=== PATIENT | male | born 1990 | race Two or more races ===

== ENCOUNTER 2022-02-05 14:40 | Outpatient (REF) | payer OTHER, SELFPAY ==
[2022-02-05 18:55] LABS: Influenza A PCR POSITIVE (Negative); Influenza B PCR NEGATIVE (Negative); Resp Syncy Virus RNA Qual PCR NEGATIVE (Negative); SARS COV2 PCR INHOUSE NEGATIVE (Negative)
== END 2022-02-05 14:41 | disposition home or self-care (01) ==
LOC: HO.LAB 14:40
PROVIDERS: Visit Provider Hospitalist
DX: R09.89 Other specified symptoms and signs involving the circulatory and respiratory systems (principal); Z20.822 Contact with and (suspected) exposure to COVID-19
CPT/HCPCS: 0241U

== ENCOUNTER 2022-02-12 09:08 | Outpatient (REF) | payer OTHER, SELFPAY ==
[2022-02-12 11:04] LABS: Hematocrit 43.3 % (42.0-52.0); Hemoglobin 13.3 g/dl (14.0-18.0); Mean Corpuscular HGB Conc 30.7 g/dl (31.0-36.0); Mean Corpuscular Hemoglobin 25.6 pg (27.0-33.0); Mean Corpuscular Volume 83.4 fL (80.0-98.0); Mean Platelet Volume 10.2 fL (9.4-12.4); Platelet Count 305 X10*3/uL (160-400); Red Blood Count 5.19 X10*6/uL (4.60-5.80); Red Cell Distribution Width 12.7 % (11.0-16.0); White Blood Count 5.9 X10*3/uL (4.8-10.8)
[2022-02-12 11:13] LABS: Alanine Aminotransferase 21 U/L (0-40); Albumin Level 3.8 g/dL (3.5-5.0); Anion Gap 12 (12-20); Aspartate Amino Transferase 13 U/L (5-37); Blood Urea Nitrogen 9 mg/dL (9-16); Carbon Dioxide 28 mmol/L (22-29); Chloride 105 mmol/L (96-108); Cholesterol 159 mg/dL; Estimated Glomerular Filt Rate > 60; Glucose Fasting 95 mg/dL (60-99); Potassium 4.1 mmol/L (3.3-5.1); Sodium 141 mmol/L (135-145); Total Protein 6.7 g/dL (6.5-8.0); Triglycerides 110 mg/dL
[2022-02-12 11:14] LABS: Alkaline Phosphatase 41 U/L (39-117); HDL Cholesterol 26 mg/dL; LDL Cholesterol Calculated 111 mg/dl
== END 2022-02-12 09:09 | disposition home or self-care (01) ==
LOC: HO.WFDLDS 09:08
PROVIDERS: Visit Provider Hospitalist
DX: Z00.00 Encounter for general adult medical examination without abnormal findings (principal)
CPT/HCPCS: 36415; 80053; 80061; 84443; 85027

== ENCOUNTER 2022-03-05 12:50 | Outpatient (REF) | payer OTHER, SELFPAY ==
[2022-03-11 18:41] LABS: Trichenella Antibody (IgG) NEGATIVE
== END 2022-03-05 12:51 | disposition home or self-care (01) ==
LOC: HO.WFDLDS 12:50
PROVIDERS: Visit Provider Hospitalist
DX: B75 Trichinellosis (principal)
CPT/HCPCS: 36415; 86784

== ENCOUNTER 2024-10-02 11:13 | Outpatient (AMB) | payer OTHER, SELFPAY ==
--- NOTE | 2024-10-02 11:14 | MHC.PC.OV ---
Vital Signs 10/02/24 11:18 Height 5 ft 10 in Weight 334 lb BMI 47.9 BP 118/68 Blood Pressure Location Rt brachial Position Sitting Respiration 13 Pulse 86 Pulse Source Pulse Oximeter Pulse Oximetry (%) 97 Oxygen Delivery Method Room Air Intake Visit Reasons: FL[place] FROM [place]ELYN/KNEE PAIN Intake Note: Florence and to establish care, patient also complaining of left knee pain x 3 months Hotel Room Attendant Required: No Allergies No Known Allergies Allergy (Verified 10/02/24 11:14) Tobacco use date assessed: 10/02/24 Dental Screening Dental Screen Date: 10/02/24 Did you have a dental visit in the last 12 months?: Yes Did you have a dental problem in the last 6 months where you did not have access to dental care?: No Was dental information given to patient?: Patient has dentist HPI HPI Comments History of Present Illness Details This is a 34-year-old male with a past medical history of class 3 obesity presenting for left knee pain and to establish care. He was last seen by Evelyn Nassar in this office in June of 2022. Patient endorses left knee pain for 3 months. No trauma or history of injury. Pain is worse when he is sitting down for 5-10 minutes and stands and when he is going up and downstairs or if he is walking for a long period of time. Pain rated as moderate aching. He localizes it to the front and inner parts of the knee. 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 His job is fairly physical, and he is on his feet for 10-11 hours per day. He appreciates no discoloration, swelling or redness of his knee. Initially his knee felt weak which resolved. He did not fall. He has tried icing and elevating without relief. Rkuc-kfh-zmfrkor arthritis cream was minimally helpful. Took ibuprofen a couple of times. He is unsure if it helped. No prior episodes or history of knee surgery. He notes that his weight has increased. He has not had recent blood work. He admits that his diet is not always very healthy particularly when he is busy. He sometimes eats the food provided at work but it is fried food that is not very healthy. He is not exercising regularly. ROS: Constitutional: No fevers or chills Respiratory: No shortness of breath Cardiovascular: No chest pain Neurologic: No numbness or tingling Physical exam: Constitutional: Alert, in no distress. Respiratory: Clear to auscultation. Cardiovascular: S1 S2 regular. No murmurs. Left knee: Full range of motion, +knee pain with flexion. Nontender to palpation. No laxity. Negative Jennifer and Kayla test. No crepitus. Normal gait. Extremities: Warm and well perfused. No clubbing, cyanosis or edema. Psychiatric: Normal mood and affect [facility] Medical History (Updated 10/02/24 @ 13:32 by GWENDOLYN Martinez) Class 3 obesity Left knee pain Screening for cardiovascular condition Obesity Family History (Updated 10/02/24 @ 11:21 by Tate Rhodes MA) Father Hypertension Mother Rheumatic arteritis Mental health disorder Social History Household Members: Family Housing: House Do you presently have visiting nurse or other home services: No 75 years or older and lives alone: No Patient Tobacco Use Status: Never used Tobacco e-Cigarette/Vaping Use: Never Used Second Hand Smoke Exposure: No Current occupational status: employed 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 07915 - PHQ-9 Billing: Patient declined-do not bill Source: Developed by Drs. Tim Garcia, Harper Alvarez, Ray Hernandez and colleagues, with an educational mansi from [employer]. Thrive Questionnaire Date Thrive assessed: 10/02/24 I am a: Patient What is your living situation today?: I have a steady place to live Within the past 12 months, did the food you bought not last and you didn't have the money to get more?: Never true Within the past 12 months, did you worry whether your food would run out before you got money to buy more?: Never true Do you have trouble paying for medicines?: No Do you have trouble getting transportation to medical appointments?: No Do you have trouble paying your heating and electricity bill?: No Do you have trouble taking care of your child, family member or friend?: No Do you have trouble with day-to-day activities such as bathing, preparing meals, shopping, managing finances, etc.?: No Are you currently unemployed and looking for a job?: No Are you interested in more education?: Yes Please select the resources that you would like help with: None Currently or been in a relationship where the following occur: No concerns reported THRIVE Score: 0 AUDIT C Alcohol Use Questionnaire (AUDIT-C) 1. How often do you have a drink containing alcohol?: Monthly or less 2. How many drinks containing alcohol do you have on a typical day when you are drinking?: 3 or 4 3. How often do you have six or more drinks on one occasion?: Less than monthly Total Score: 3 FABIAN-7 AMB Questionnaire FABIAN-7 Date FABIAN - 7 assessed: 10/02/24 Feeling nervous, anxious, or on edge: 0 = Not at all Not being able to stop or control worryin = Not at all Worrying too much about different things: 0 = Not at all Trouble relaxin = Not at all Being so restless that it is hard to sit still: 0 = Not at all Becoming easily annoyed or irritable: 0 = Not at all Feeling afraid as if something awful might happen: 0 = Not at all Total FABIAN-7 score (0-4 normal; 5-9 mild; 10-14 moderate; 15-21 severe): 0 Source: Developed by Drs. Tim Garica, Harper Alvarez, Ray Hernandez and colleagues, with an educational mansi from [employer]. FABIAN-7 Assessment Billing FABIAN-7 Assessment Tool: FABIAN-7 Assessment 46330 Physical exam (Primary Care) Vital Signs: Last Vital Signs Pulse 86 10/02/24 11:18 Resp 13 10/02/24 11:18 BP 118/68 10/02/24 11:18 Pulse Ox 97 10/02/24 11:18 Oxygen Delivery Method Room Air 10/02/24 11:18 BMI result Body Mass Index 47.9 Tobacco/Smoking Status: Tobacco use Status Tobacco use date assessed 10/02/24 10/02/24 11:20 Patient Tobacco Use Status Never used Tobacco 10/02/24 11:20 e-Cigarette/Vaping Use Never Used 10/02/24 11:20 Thrive Assessment: Date of Thrive Assessment Date Thrive assessed 10/02/24 10/02/24 11:20 Currently or been in a relationship where the following occur: No concerns reported Coding Level of Care Code Est Pt Level 4 (15193) Complex EM visit Add On G2211 Diagnoses Left knee pain M25.562 Class 3 obesity E66.813 Additional Codes FABIAN-7 Assessment Billing - FABIAN-7 Assessment Tool: FABIAN-7 Assessment 04611 ([id number]) Assessment & Plan Assessment & Plan (1) Left knee pain: Code(s): M25.562 - Pain in left knee Category: Medical Plan: Trial of sulindac 200 mg twice daily with food times 10 days. Do not take with other NSAIDs. Side effects reviewed. Continue to alternate with ice and he as needed for pain. X-ray ordered. Refer to physical therapy. Re-evaluate in 8 weeks. (2) Class 3 obesity: Code(s): E66.813 - Obesity, class 3 Category: Medical Plan: We discussed initial management including decreasing portion sizes, low-carbohydrate diet, avoidance of sugary foods and alcohol and increasing exercise though this may be limited due to knee pain. He will return for fasting labs. He will schedule a physical exam to review labs and at that time we can discuss if he is a candidate for weight loss medication or if he wants referral to the weight loss management program or to try The Right BMI kris. Plan Follow up in 8 weeks for CPE/knee pain. Orders: Orders Lipid Panel Today E78.5 - Hyperlipidemia, unspecified, M25.562 - Pain in left knee, Z13.6 - Encounter for screening for cardiovascular disorders Complete Blood Count no Diff Today M25.562 - Pain in left knee, Z13.6 - Encounter for screening for cardiovascular disorders Comprehensive Met. Panel Today M25.562 - Pain in left knee, Z13.6 - Encounter for screening for cardiovascular disorders TSH reflex Free T4 Today M25.562 - Pain in left knee, Z13.6 - Encounter for screening for cardiovascular disorders Lyme IgG/IgM w/reflex to WB Today M25.562 - Pain in left knee, Z13.6 - Encounter for screening for cardiovascular disorders XR knee LT 2V Today M25.562 - Pain in left knee PT Evaluation and Treatment Today M25.562 - Pain in left knee Medications: New sulindac 200 mg PO BID 20 tabs 0RF
[2024-10-02 11:18] VITALS: BP 118/68; PULSE 86; RESP 13; O2SAT 97; BMI 47.9
== END 2024-10-02 11:39 | disposition home or self-care (01) ==
PROVIDERS: PCP Physician Assistant Medical; Visit Provider Physician Assistant Medical
DX: M25.562 Pain in left knee (principal); E66.813 Obesity, class 3; Z68.42 Body mass index [BMI] 45.0-49.9, adult

== ENCOUNTER 2024-10-03 11:56 | Outpatient (REF) | payer OTHER, SELFPAY ==
[2024-10-03 12:39] LABS: Hematocrit 45.1 % (42.0-52.0); Hemoglobin 14.2 g/dl (14.0-18.0); Mean Corpuscular HGB Conc 31.5 g/dl (31.0-36.0); Mean Corpuscular Hemoglobin 25.9 pg (27.0-33.0); Mean Corpuscular Volume 82.3 fL (80.0-98.0); Mean Platelet Volume 10.3 fL (9.4-12.4); Platelet Count 268 X10*3/uL (160-400); Red Blood Count 5.48 X10*6/uL (4.60-5.80); Red Cell Distribution Width 13.4 % (11.0-16.0); White Blood Count 6.7 X10*3/uL (4.8-10.8)
[2024-10-03 13:07] LABS: Albumin Level 4.1 g/dL (3.5-5.0); Anion Gap 11 (12-20); Aspartate Amino Transferase 22 U/L (5-37); Bilirubin Total 1.8 mg/dL (0.0-1.0); Blood Urea Nitrogen 13 mg/dL (9-16); Carbon Dioxide 28 mmol/L (22-29); Chloride 105 mmol/L (96-108); Cholesterol 156 mg/dL (<200); Estimated Glomerular Filt Rate > 60; Glucose Random 92 mg/dL (60-115); HDL Cholesterol 32 mg/dL (>40); LDL Cholesterol Calculated 97 mg/dL (<100); Potassium 4.6 mmol/L (3.3-5.1); Sodium 139 mmol/L (135-145); Total Protein 7.2 g/dL (6.5-8.0); Triglycerides 137 mg/dL (<150)
[2024-10-03 13:32] LABS: Alanine Aminotransferase 20 U/L (0-40); Alkaline Phosphatase 53 U/L (39-117); TSH reflex Free T4 1.86 uIU/mL (0.32-4.0)
[2024-10-04 19:48] LABS: Lyme Abs Screen <0.90 index
== END 2024-10-03 11:57 | disposition home or self-care (01) ==
LOC: HO.LAB 11:56
PROVIDERS: PCP Physician Assistant Medical; Visit Provider Physician Assistant Medical
DX: M25.562 Pain in left knee (principal); Z13.6 Encounter for screening for cardiovascular disorders; E78.5 Hyperlipidemia, unspecified
CPT/HCPCS: 36415; 73560; 80053; 80061; 84443; 85027; 86617; 86618

== ENCOUNTER 2024-12-11 10:25 | Outpatient (AMB) | payer OTHER, SELFPAY ==
[2024-12-11 10:38] VITALS: BP 140/82; PULSE 83; O2SAT 98; BMI 46.2
--- NOTE | 2024-12-11 10:38 | MHC.PC.OV ---
Vital Signs 12/11/24 10:38 Height 5 ft 10 in Weight 322 lb 4 oz BMI 46.2 BP 140/82 H Blood Pressure Location Lt brachial Position Sitting Pulse 83 Pulse Source Pulse Oximeter Pulse Oximetry (%) 98 Oxygen Delivery Method Room Air Intake Visit Reasons: annual physical/recheck knee Allergies No Known Allergies Allergy (Verified 12/11/24 10:41) Tobacco use date assessed: 12/11/24 Dental Screening Dental Screen Date: 12/11/24 Did you have a dental visit in the last 12 months?: Yes Did you have a dental problem in the last 6 months where you did not have access to dental care?: No Was dental information given to patient?: Patient has dentist HPI HPI Comments History of Present Illness Details This is a 34-year-old male with a past medical history of class 3 obesity and left knee pain presenting for a physical exam. X-ray of the left knee was normal. He tried a 10 day course of sulindac. His knee is a little better, but it is still bothering him. He did not do physical therapy. Patient says he needs the referral placed again. I did this for the patient and I instructed him to call if he does not hear about this in 2 weeks. Patient has lost weight! He changed his diet and is exercising. We reviewed his recent labs. He is going to have bilirubin repeated. Patient is agreeable to referral to weight loss management. This is placed. He endorses snoring and has been told that at night sometimes he has pauses in his breathing if he is sleeping on his back, and he has occasionally woken up gasping for air. Endorses non restorative sleep. Drinks alcohol occasionally. As above, he is trying to lose weight. ROS: Constitutional: No unexplained weight loss, fever, chills, fatigue or night sweats. Eyes: No vision changes, blurry vision, double vision, eye pain, eye redness, eye discharge. ENT: No hearing loss, sneezing, congestion, runny nose or sore throat. Respiratory: No shortness of breath, cough or sputum production. Cardiovascular: No chest pain, chest pressure or chest discomfort. No palpitations or pedal edema. Gastrointestinal: No anorexia, nausea, vomiting or diarrhea. No abdominal pain or blood in stool. Genitourinary: No dysuria, hematuria, urinary frequency. Neurologic: No headache, dizziness, syncope, unilateral weakness, ataxia, numbness or tingling in the extremities. Musculoskeletal: See HPI Hematologic/Lymphatics: No bleeding or bruising. No painful lymph nodes. Skin: No rash or itching. Endocrine: No cold or heat intolerance. No polyuria or polydipsia. Psychiatric: No depression or anxiety. No SI/HI. Physical exam: Constitutional: Alert, in no distress. Head: Normocephalic. Eyes: Pupils are equal, round and reactive to light. Extraocular muscles intact. Ear, Nose and Throat: Canals clear. TMs normal. Normal nasal mucosa. No nasal discharge. No oral lesions. Neck: Supple, Full range of motion. No lymphadenopathy. No palpable thyroid masses. Respiratory: Clear to auscultation. Cardiovascular: S1 S2 regular. No murmurs. Gastrointestinal: Abdomen soft, non-tender, non-distended. Normal bowel sounds. No palpable masses. Genitourinary: Patient declined. Neurologic: No focal neurological deficits. Symmetric patellar reflexes. Moves all extremities spontaneously. Sensation intact bilaterally. Skin: No rashes. Musculoskeletal: +left knee crepitus. Extremities: Warm and well perfused. No clubbing, cyanosis or edema. 3+ peripheral pulses bilaterally. Psychiatric: Normal mood and affect [facility] Medical History (Updated 12/11/24 @ 13:35 by GWENDOLYN Martinez) Routine physical examination Sleep apnea Class 3 obesity Left knee pain Screening for cardiovascular condition Obesity Family History Father Hypertension Mother Rheumatic arteritis Mental health disorder Social History Household Members: Family Housing: House Do you presently have visiting nurse or other home services: No Patient Tobacco Use Status: Never used Tobacco e-Cigarette/Vaping Use: Never Used Second Hand Smoke Exposure: No Current occupational status: employed 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 1. Little interest or pleasure in doing things: not at all 2. Feeling down, depressed, or hopeless: not at all 3. Trouble falling or staying asleep, or sleeping too much: several days 4. Feeling tired or having little energy: not at all 5. Poor appetite or overeating: not at all 6. Feeling bad about yourself - or that you are a failure or have let yourself or your family down: not at all 7. Trouble concentrating on things, such as reading the newspaper or watching television: not at all 8. Moving or speaking so slowly that other people could have noticed. Or the opposite - being so fidgety or restless that you have been moving around a lot more than usual: not at all 9. Thoughts that you would be better off or of hurting yourself in some way: not at all Total score: 1 Depression Screening Interpretation: Negative Depression Screening Done: Yes 13383 - PHQ-9 Billing: Yes Source: Developed by Drs. Tim Garcia, Harper Alvarez, Ray Hernandez and colleagues, with an educational mansi from [employer]. Thrive Questionnaire Date Thrive assessed: 12/08/24 I am a: Patient What is your living situation today?: I have a steady place to live Within the past 12 months, did the food you bought not last and you didn't have the money to get more?: Never true Within the past 12 months, did you worry whether your food would run out before you got money to buy more?: Never true Do you have trouble paying for medicines?: No Do you have trouble getting transportation to medical appointments?: No Do you have trouble paying your heating and electricity bill?: No Do you have trouble taking care of your child, family member or friend?: No Do you have trouble with day-to-day activities such as bathing, preparing meals, shopping, managing finances, etc.?: No Are you currently unemployed and looking for a job?: No Are you interested in more education?: No Please select the resources that you would like help with: None Currently or been in a relationship where the following occur: No concerns reported THRIVE Score: 0 AUDIT C Alcohol Use Questionnaire (AUDIT-C) 1. How often do you have a drink containing alcohol?: Monthly or less 2. How many drinks containing alcohol do you have on a typical day when you are drinking?: 1 or 2 3. How often do you have six or more drinks on one occasion?: Less than monthly Total Score: 2 FABIAN-7 AMB Questionnaire FABIAN-7 Date FABIAN - 7 assessed: 12/11/24 Feeling nervous, anxious, or on edge: 0 = Not at all Not being able to stop or control worryin = Not at all Worrying too much about different things: 1 = Several days Trouble relaxin = Not at all Being so restless that it is hard to sit still: 0 = Not at all Becoming easily annoyed or irritable: 0 = Not at all Feeling afraid as if something awful might happen: 0 = Not at all Total FABIAN-7 score (0-4 normal; 5-9 mild; 10-14 moderate; 15-21 severe): 1 Source: Developed by Drs. Tim Garcia, Harper Alvarez, Ray Hernandez and colleagues, with an educational mansi from [employer]. FABIAN-7 Assessment Billing FABIAN-7 Assessment Tool: FABIAN-7 Assessment 93279 Physical exam (Primary Care) Vital Signs: Last Vital Signs Pulse 83 12/11/24 10:38 BP 140/82 H 12/11/24 10:38 Pulse Ox 98 12/11/24 10:38 Oxygen Delivery Method Room Air 12/11/24 10:38 BMI result Body Mass Index 46.2 Tobacco/Smoking Status: Tobacco use Status Tobacco use date assessed 12/11/24 12/11/24 10:43 Patient Tobacco Use Status Never used Tobacco 12/11/24 10:43 e-Cigarette/Vaping Use Never Used 12/11/24 10:43 PHQ-9: PHQ-9 Score PHQ-9: Total score 1 12/11/24 11:20 Depression Screening Interpretation: Negative Thrive Assessment: Date of Thrive Assessment Date Thrive assessed 12/08/24 12/11/24 10:43 Currently or been in a relationship where the following occur: No concerns reported Immunizations Boostrix Tdap 2.5 Lf unit-8 mcg-5 Lf/0.5 mL intramuscular syringe Performing Provider: GWENDOLYN Martinez Performing Location: [facility] [place] [facility] Administered by: Dottie Galaviz CMA on 12/11/24 11:20 Dose Route Admin Location Dispensed Lot Number Expiration Date [facility] [employer] 0.5 mL IM Left Tricep 0.5 mL [id number] 02/03/27 03217-983-92 [employer] VIS Given Date VIS Provided VIS Publication Date 12/11/24 Single Vaccine 21 Eligibility Eligibility Date Funding Source Not [facility] Eligible 12/11/24 Private Coding Level of Care Code Est Pt Prev Care 18-39y(53307) Diagnoses Left knee pain M25.562 Class 3 obesity E66.813 Sleep apnea G47.30 Routine physical examination Z00.00 Additional Codes FABIAN-7 Assessment Billing - FABIAN-7 Assessment Tool: FABIAN-7 Assessment 05491 ([id number]) PHQ-9 - 26042 - PHQ-9 Billing: Yes ([id number]) Assessment & Plan Assessment & Plan (1) Left knee pain: Code(s): M25.562 - Pain in left knee Category: Medical Plan: Refer to physical therapy. Re-evaluate in 8 weeks. (2) Class 3 obesity: Code(s): E66.813 - Obesity, class 3 Category: Medical Plan: We discussed initial management including decreasing portion sizes, low-carbohydrate diet, avoidance of sugary foods and alcohol and increasing exercise though this may be limited due to knee pain. Referred to weight loss management.. (3) Sleep apnea: Code(s): G47.30 - Sleep apnea, unspecified Category: Medical Plan: Continue weight loss. Avoid alcohol. Avoid sleeping supine. Referred for urgent sleep study. (4) Routine physical examination: Code(s): Z00.00 - Encounter for general adult medical examination without abnormal findings Category: Medical Plan: Patient is seen today for a routine physical. As part of this visit we reviewed the following issues, which are considered and essential part of preventative health in this age group: - Testicular cancer screening, which includes self exam teaching - Blood pressure screening annually - Cholesterol screening - Nutritional and exercise counseling - Counseling of injury prevention including fire prevention, smoke alarms and seat belt usage - Screening for depression - Prevention of and/or testing for infectious diseases - Education about skin cancer - Recommendations about immunizations - Recommendation of an eye exam - Screening for substance abuse Plan Follow up in 8 weeks to re-evaluate knee pain. Orders: Orders PT Evaluation and Treatment Today M25.562 - Pain in left knee RT home sleep study Today G47.30 - Sleep apnea, unspecified TDaP Immunization Today Z23 - Encounter for immunization Referrals Medical Weight Management Referral E66.813 - Obesity, class 3
== END 2024-12-11 11:21 | disposition home or self-care (01) ==
PROVIDERS: PCP Physician Assistant Medical; Visit Provider Physician Assistant Medical
DX: Z00.00 Encounter for general adult medical examination without abnormal findings (principal); E66.813 Obesity, class 3; Z68.42 Body mass index [BMI] 45.0-49.9, adult; M25.562 Pain in left knee; G47.30 Sleep apnea, unspecified; Z23 Encounter for immunization

== ENCOUNTER → 2024-12-11 10:25 | Outpatient (BNVA) | payer OTHER, SELFPAY | PROVIDERS: PCP Physician Assistant Medical; Visit Provider Physician Assistant Medical | DX: Z00.00 Encounter for general adult medical examination without abnormal findings (principal); Z23 Encounter for immunization; M25.562 Pain in left knee; E66.813 Obesity, class 3; Z68.42 Body mass index [BMI] 45.0-49.9, adult; G47.30 Sleep apnea, unspecified | CPT/HCPCS: 90471; 90715; 96127 ==

== ENCOUNTER 2024-12-11 11:31 | Outpatient (REF) | payer OTHER, SELFPAY ==
[2024-12-11 15:01] LABS: Bilirubin Direct 0.2 mg/dL (0.0-0.5); Bilirubin Total 1.5 mg/dL (0.0-1.0)
== END 2024-12-11 11:32 | disposition home or self-care (01) ==
LOC: HO.WFDLDS 11:31
PROVIDERS: Visit Provider Physician Assistant Medical
DX: R17 Unspecified jaundice (principal)
CPT/HCPCS: 36415; 82247; 82248

== ENCOUNTER 2025-01-02 08:01 | Outpatient (AMB) | payer OTHER, SELFPAY ==
--- NOTE | 2025-01-02 08:55 | A.OFFVIS_ITS ---
Intake Visit Reasons: [facility] [facility] Allergies No Known Allergies Allergy (Verified 01/02/25 08:56) Medication List - Last Reconciled 01/02/25 by Mich Liriano MD No Known Home Meds HPI HPI [employer] [facility] [facility] [facility]: Details: Start time: 8.50am, End time: 9.20am ?I spent 25 minutes speaking with the patient on the phone plus an additional 5 minutes reviewing and updating records for a total of 30 minutes HPI Comments Details: Previous weight loss efforts: diet and exercise Wakes up: 4.30am, Sleeps: 10pm Breakfast: 5am (premade Premier) Lunch: 12pm (meat with vegetables) Dinner: 6pm (meat with vegetables) Snacks: 8am (jello), 8pm (nuts) Exercise: has Elliptical at home Beverages: Coffee (2-3 cup/d with Splenda and milk), tea: none, soda: none, juice: 1-2/wk (no sugar), ETOH: 1-2 beers/wk PFSH Medical History (Updated 01/02/25 @ 08:58 by Mich Liriano MD) Morbid obesity Elevated bilirubin Routine physical examination Sleep apnea Class 3 obesity Left knee pain Screening for cardiovascular condition Obesity Surgical History (Updated 12/26/24 @ 12:07 by Ml Conti CMA) Hx of foot surgery Family History Father Hypertension Mother Rheumatic arteritis Mental health disorder Social History (Updated 12/26/24 @ 12:08 by Ml Conti CMA) Household Members: Family Housing: House Do you presently have visiting nurse or other home services: No 75 years or older and lives alone: No Alcohol intake: current Alcohol intake frequency: holidays/special occasions only Patient Tobacco Use Status: Never used Tobacco e-Cigarette/Vaping Use: Never Used Second Hand Smoke Exposure: No Current occupational status: employed 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 Cognitive needs: No Hearing needs: No Vision needs: Yes (wear glasses) Telehealth Telehealth Telehealth Platform: Telephone Location of provider rendering services: practice address Location of patient: address on file Patient Identification confirmed using: Name, : Yes Telehealth method: voice only Patient verbally consented to treatment: Yes Patient verbally consented to billing insurance company: Yes Patient informed of any privacy concerns related to visit: Yes Minutes spent on Phone/Video with Pt.: 30 Assessment & Plan Assessment & Plan (1) Morbid obesity: Code(s): E66.01 - Morbid (severe) obesity due to excess calories Category: Medical Plan: 1. We discussed in detail the available therapeutic options: 1) our lifestyle intervention program that has an average weight loss of 10% in 3 months.? 2) Weight loss medications. 3) We also discussed about the lap sleeve gastrectomy. I emphasized the importance of close follow-up, adherence to instructions and good communication. The surgery does not replace the need to change your lifestlyle which is the cause of the obesity problem. The surgery provides the motivation to try again to change your lifestyle, it reduces the appetite and make the transition to a better lifestyle easier and doubles the amount of weight you would lose compared to doing the lifestyle change without the surgery. You will need to be on a liquid diet with protein shakes for 2 weeks before surgery to maximize weight loss and boost your nutritional status to recover better from surgery and also for the first two weeks after surgery to let the stomach heal before we introduce other foods. After the first 2 weeks we will introduce protein bars and soft foods like scrambled eggs, cottage cheese and yogurt and after the 6th week will introduce meat, fish and cooked vegetables in small amounts. Over time you should be able to eat everything in small amounts. Side effects like nausea, vomiting, heartburn or abdominal pain are not common in the practice unless you are not following in the practice. This operation requires lifetime commitment to following in our practice and communication with me. You will much less weight and experience side effects if you don?t communicate or not following in the practice. Complications are rare and in our practice is about 1/10 of the national average. The patient prefers to try the anti-obesity medications. ?2.? Please use your body composition scale we discussed and send me weight measurements as soon as possible and then once a week. 3. The best choice would be to use your elliptical machine. Goal is to exercise for 150 minutes per week. 4. Goal is to lose at least 1.5-2lbs per week 5. Goal to lose at least 10% of your weight, which is about 32lbs. Weight goal: 280lbs 7. Once I will receive the first weight measurement, I will order a medication to help you with the weight loss which is called Zepbound. My office will try to authorize it. Please let me know when you receive it so I can give you a meal and exercise plan. Common side effects include nausea, vomiting, constipation, diarrhea, abdominal pain. Please let me know if you develop any of these symptoms. 8. Please track the calories you consume daily and aim not to exceed the 1800 calories per day. Avoid high calorie drinks, fried, or high in fat foods as well as large amount of carbohydrates (sweets, potatoes, rice, or pasta).
== END 2025-01-02 09:21 | disposition home or self-care (01) ==
LOC: HO.HBS 08:01
PROVIDERS: PCP Physician Assistant Medical; Visit Provider Surgery
DX: E66.813 Obesity, class 3 (principal); Z68.42 Body mass index [BMI] 45.0-49.9, adult
CPT/HCPCS: 99203

== ENCOUNTER → 2025-01-02 08:01 | Outpatient (BNVA) | payer OTHER, SELFPAY | PROVIDERS: PCP Physician Assistant Medical; Visit Provider Surgery ==

== ENCOUNTER 2025-01-29 10:13 | Outpatient (REF) | payer OTHER, SELFPAY ==
--- NOTE | ~2025-01-29 | US_ITS ---
CLINICAL HISTORY: R17 - Unspecified jaundice US abdomen limited Comparison: None Findings: Limited evaluation of the pancreas secondary to overlying bowel gas. The visualized aorta and IVC are unremarkable. Liver length estimated at 18 cm. No focal liver lesion. Unremarkable echogenicity. Possible mild intrahepatic duct dilatation. There is no intrahepatic bile duct dilatation. The common duct is 5 mm in diameter. The gallbladder is normal. There is no sonographic Mascorro sign. The main portal vein is antegrade. The right kidney is [12 cm in length. Limited visualization of the lower pole. No ascites. IMPRESSION: 1. There may be a mild degree of intrahepatic ductal dilatation. 2. Borderline dilatation of the common bile duct. This document has been electronically signed by: Malika Menard MD on 01/29/2025 16:49:05
== END 2025-01-29 10:14 | disposition home or self-care (01) ==
LOC: HO.US 10:13
PROVIDERS: PCP Physician Assistant Medical; Visit Provider Physician Assistant Medical
DX: R17 Unspecified jaundice (principal)
CPT/HCPCS: 76705

== ENCOUNTER → 2025-01-29 10:15 | Outpatient (BNV) | payer OTHER, SELFPAY | PROVIDERS: PCP Physician Assistant Medical; Visit Provider Radiology Diagnostic Radiology | DX: R17 Unspecified jaundice (principal); K83.8 Other specified diseases of biliary tract | CPT/HCPCS: 76705 ==

== ENCOUNTER 2025-02-04 13:35 | Outpatient (REF) | payer OTHER, SELFPAY ==
[2025-02-04] MEDS: gadobutroL 10 ML VIAL IVPUSH (14:25)
== END 2025-02-04 13:36 | disposition home or self-care (01) ==
LOC: HO.MRI 13:35
PROVIDERS: Visit Provider Physician Assistant Medical
DX: R17 Unspecified jaundice (principal); R93.5 Abnormal findings on diagnostic imaging of other abdominal regions, including retroperitoneum; K83.8 Other specified diseases of biliary tract
CPT/HCPCS: 74183; A9585

== ENCOUNTER → 2025-02-04 13:44 | Outpatient (BNV) | payer OTHER, SELFPAY | PROVIDERS: Visit Provider Radiology Diagnostic Radiology | DX: R17 Unspecified jaundice (principal) | CPT/HCPCS: 74183 ==

== ENCOUNTER 2025-02-12 08:56 | Outpatient (REF) | payer OTHER, SELFPAY ==
[2025-02-12 11:08] LABS: MANUAL DIFF FLAG NO
[2025-02-12 11:29] LABS: Basophils Percent Auto 0.4 % (0-2); Eosinophils Absolute Auto 0.1 X10*3/uL (0.0-0.4); Eosinophils Percent Auto 1.1 % (0-4); Hemoglobin 13.7 g/dl (14.0-18.0); Imm Gran Abs Auto 0.02 X10*3/uL (0.00-0.03); Imm Gran Pct Auto 0.3 % (0.0-0.4); Immature Retic Fraction 9.1 % (2.3-13.4); Mean Corpuscular HGB Conc 31.9 g/dl (31.0-36.0); Mean Corpuscular Hemoglobin 26.4 pg (27.0-33.0); Mean Corpuscular Volume 82.9 fL (80.0-98.0); Mean Platelet Volume 11.6 fL (9.4-12.4); Monocytes Absolute Auto 0.4 X10*3/uL (0.1-1.2); Monocytes Percent Auto 5.3 % (2-11); Neutrophils Absolute Auto 5.9 x10*3/uL (2.0-8.3); Neutrophils Percent Auto 78.9 % (45-73); Platelet Count 241 X10*3/uL (160-400); Red Blood Count 5.19 X10*6/uL (4.60-5.80); Red Cell Distribution Width 13.5 % (11.0-16.0); Retic HGB Equivalent 29.4 pg (30.0-35.0); Reticulocytes Absolute 0.105 X10*6/uL (0.026-0.095); White Blood Count 7.4 X10*3/uL (4.8-10.8)
[2025-02-12 11:55] LABS: Alanine Aminotransferase 15 U/L (0-40); Albumin Level 4.1 g/dL (3.5-5.0); Alkaline Phosphatase 50 U/L (39-117); Amylase 43 U/L (28-100); Aspartate Amino Transferase 18 U/L (5-37); Bilirubin Direct 0.4 mg/dL (0.0-0.5); Bilirubin Total 1.7 mg/dL (0.0-1.0); Lipase 29 U/L (8-78)
== END 2025-02-12 08:57 | disposition home or self-care (01) ==
LOC: HO.WFDLDS 08:56
PROVIDERS: Visit Provider Physician Assistant Medical
DX: R17 Unspecified jaundice (principal)
CPT/HCPCS: 36415; 80076; 82150; 83690; 85025; 85045

== ENCOUNTER 2025-02-19 09:47 | Outpatient (AMB) | payer OTHER, SELFPAY ==
--- NOTE | 2025-02-19 09:57 | MHC.PC.OV ---
Vital Signs 02/19/25 10:02 Height 5 ft 10 in Weight 296 lb BMI 42.5 BP 118/68 Blood Pressure Location Rt brachial Position Sitting Respiration 14 Pulse 81 Pulse Source Pulse Oximeter Temp 98.7 F Temp Source Temporal Artery Scan Pulse Oximetry (%) 98 Oxygen Delivery Method Room Air Intake Visit Reasons: recheck knee and BP Intake Note: Adan presents in the office today for a recheck of his knee and blood pressure. Patient has had labs done and an MRI. Allergies No Known Allergies Allergy (Verified 02/19/25 10:00) Tobacco use date assessed: 02/19/25 Dental Screening Dental Screen Date: 02/19/25 Did you have a dental visit in the last 12 months?: Yes Did you have a dental problem in the last 6 months where you did not have access to dental care?: No Was dental information given to patient?: Patient has dentist HPI HPI Comments History of Present Illness Details This is a 34-year-old male with a past medical history of morbid obesity, left knee pain, elevated bilirubin and sleep apnea presenting to review test results. Patient had elevated bilirubin detected on routine labs. Abdominal ultrasound demonstrated a mild degree of intrahepatic ductal dilatation and borderline dilatation of the common bile duct. MRI of the abdomen was completed on 02/04/2025 and showed mild splenomegaly but no other acute process or evidence of liver disease or biliary ductal dilatation. The patient had blood work completed on 02/12/2025 which shows very mild anemia with hemoglobin of 13.7, MCH 26.4, mildly decreased lymphocyte count at 1000 and mildly increased reticulocyte count. His total bilirubin has remained elevated at 1.7 02/12/25. His liver enzymes and alkaline phosphatase are normal. Pancreatic enzymes are normal. He denies abdominal pain, nausea, vomiting, jaundice, unexplained weight loss, night sweats. He does note that he gets sick frequently because he has a young daughter at home, and a few weeks ago he did have another viral illness which resolved. The patient has intentionally lost weight. He is seeing weight loss management. He is currently on Zepbound with no side effects. He has lost about 30 lb. He is also following lifestyle modifications. His sleep study is scheduled tomorrow. He endorsed witnessed apneic episodes if sleeping on his back and frequent snoring. He also endorse non restorative sleep. He says symptoms have improved somewhat since losing weight. He has endorsed left knee pain, and he had an x-ray of the left knee in September which showed no abnormal findings. He was referred to physical therapy. But he was not contacted to schedule the appointment. I printed the referral for him today with the contact number for physical therapy to call to schedule this. ROS: Constitutional: No unexplained weight loss, fever, chills, fatigue or night sweats. Eyes: No vision changes, blurry vision, double vision, eye pain, eye redness, eye discharge. Respiratory: No shortness of breath, cough or sputum production. Cardiovascular: No chest pain, chest pressure or chest discomfort. No palpitations or pedal edema. Gastrointestinal: No anorexia, nausea, vomiting or diarrhea. No abdominal pain or blood in stool. Neurologic: No headache, dizziness, syncope, unilateral weakness, ataxia, numbness or tingling in the extremities. Musculoskeletal: See HPI Hematologic/Lymphatics: No bleeding or bruising. No painful lymph nodes. Skin: No rash or itching.. Physical exam: Constitutional: Alert, in no distress. Eyes: Pupils are equal, round and reactive to light. Extraocular muscles intact. Neck: Supple, Full range of motion. No lymphadenopathy. No palpable thyroid masses. Respiratory: Clear to auscultation. Cardiovascular: S1 S2 regular. No murmurs. Gastrointestinal: Abdomen soft, non-tender, non-distended. Normal bowel sounds. No palpable masses. Skin: No rashes. Extremities: Warm and well perfused. No clubbing, cyanosis or edema. Psychiatric: Normal mood and affect [facility] Medical History (Updated 02/20/25 @ 08:44 by GWENDOLYN Martinez) Mild anemia Splenomegaly Dilated bile duct Abnormal US (ultrasound) of abdomen Morbid obesity Elevated bilirubin Routine physical examination Sleep apnea Class 3 obesity Left knee pain Screening for cardiovascular condition Obesity Surgical History (Updated 12/26/24 @ 12:07 by Ml Conti CMA) Hx of foot surgery Family History Father Hypertension Mother Rheumatic arteritis Mental health disorder Social History (Updated 02/19/25 @ 10:01 by Jyoti Rosas MA) Household Members: Family Housing: House Do you presently have visiting nurse or other home services: No 75 years or older and lives alone: No Alcohol intake: current Alcohol intake frequency: holidays/special occasions only Patient Tobacco Use Status: Never used Tobacco e-Cigarette/Vaping Use: Never Used Second Hand Smoke Exposure: No Current occupational status: employed 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 Cognitive needs: No Hearing needs: No Vision needs: Yes (wear glasses) Questionnaire Thrive Questionnaire Date Thrive assessed: 12/08/24 I am a: Patient What is your living situation today?: I have a steady place to live Within the past 12 months, did the food you bought not last and you didn't have the money to get more?: Never true Within the past 12 months, did you worry whether your food would run out before you got money to buy more?: Never true Do you have trouble paying for medicines?: No Do you have trouble getting transportation to medical appointments?: No Do you have trouble paying your heating and electricity bill?: No Do you have trouble taking care of your child, family member or friend?: No Do you have trouble with day-to-day activities such as bathing, preparing meals, shopping, managing finances, etc.?: No Are you currently unemployed and looking for a job?: No Are you interested in more education?: No Please select the resources that you would like help with: None Currently or been in a relationship where the following occur: No concerns reported THRIVE Score: 0 FABIAN-7 AMB Questionnaire FABIAN-7 Date FABIAN - 7 assessed: 12/11/24 Source: Developed by Drs. Tim Garcia, Harper Alvarez, Ray Hernandez and colleagues, with an educational mansi from [employer]. Physical exam (Primary Care) Vital Signs: Last Vital Signs Temp 98.7 F 02/19/25 10:02 Pulse 81 02/19/25 10:02 Resp 14 02/19/25 10:02 BP 118/68 02/19/25 10:02 Pulse Ox 98 02/19/25 10:02 Oxygen Delivery Method Room Air 02/19/25 10:02 BMI result Body Mass Index 42.5 Tobacco/Smoking Status: Tobacco use Status Tobacco use date assessed 02/19/25 02/19/25 10:01 Patient Tobacco Use Status Never used Tobacco 02/19/25 10:01 e-Cigarette/Vaping Use Never Used 02/19/25 10:01 Thrive Assessment: Date of Thrive Assessment Date Thrive assessed 12/08/24 02/19/25 09:59 Currently or been in a relationship where the following occur: No concerns reported Coding Level of Care Code Est Pt Level 4 (91673) Complex EM visit Add On G2211 Diagnoses Splenomegaly R16.1 Elevated bilirubin R17 Mild anemia D64.9 Sleep apnea G47.30 Morbid obesity E66.01 Left knee pain M25.562 Assessment & Plan Assessment & Plan (1) Splenomegaly: Code(s): R16.1 - Splenomegaly, not elsewhere classified Category: Medical (2) Elevated bilirubin: Code(s): R17 - Unspecified jaundice Category: Medical (3) Mild anemia: Code(s): D64.9 - Anemia, unspecified Category: Medical (4) Sleep apnea: Code(s): G47.30 - Sleep apnea, unspecified Category: Medical (5) Morbid obesity: Code(s): E66.01 - Morbid (severe) obesity due to excess calories Category: Medical (6) Left knee pain: Code(s): M25.562 - Pain in left knee Category: Medical Plan Mild splenomegaly could be normal for a patient of his size. Abnormalities on his CBC are mild and could also be attributed to viral infections as he does have a toddler at home and reports frequent illness. Given elevated bilirubin with these findings I would like to make sure there was not a systemic process going on and unexplained that to the patient. He agreed. I will refer for Hematology consult to be cautious. Advised him to monitor for any alarming symptoms such as abdominal pain, unexplained weight loss, night sweats, fatigue, jaundice. He was given the contact number for physical therapy, and he will schedule this. His sleep study is scheduled tomorrow. I congratulated him on weight loss. He is followed by weight loss management and doing well on Zepbound. He intact the office to increase his next dose when he is due. He will follow up with me in 3 months for a medication check.
[2025-02-19 10:02] VITALS: BP 118/68; PULSE 81; RESP 14; TEMP 37.1; O2SAT 98; BMI 42.5
== END 2025-02-19 10:39 | disposition home or self-care (01) ==
LOC: HO.HMCFM 09:48
PROVIDERS: PCP Physician Assistant Medical; Visit Provider Physician Assistant Medical
DX: R16.1 Splenomegaly, not elsewhere classified (principal); G47.30 Sleep apnea, unspecified; E66.01 Morbid (severe) obesity due to excess calories; Z68.41 Body mass index [BMI] 40.0-44.9, adult; R17 Unspecified jaundice; D64.9 Anemia, unspecified; M25.562 Pain in left knee

== ENCOUNTER → 2025-02-20 09:46 | Outpatient (REF) | payer OTHER, SELFPAY | LOC: HO.SL 09:46 | PROVIDERS: PCP Physician Assistant Medical; Visit Provider Physician Assistant Medical | DX: G47.30 Sleep apnea, unspecified (principal) | CPT/HCPCS: 95806 ==

== ENCOUNTER → 2025-02-20 09:58 | Outpatient (BNV) | payer OTHER, SELFPAY | PROVIDERS: PCP Physician Assistant Medical; Visit Provider Internal Medicine | DX: G47.33 Obstructive sleep apnea (adult) (pediatric) (principal) | CPT/HCPCS: 95806 ==

== ENCOUNTER → 2025-03-26 09:27 | Outpatient (BNV) | payer OTHER, SELFPAY | PROVIDERS: PCP Physician Assistant Medical; Referring Provider Nurse Practitioner Family; Visit Provider Internal Medicine | DX: D64.9 Anemia, unspecified (principal) | CPT/HCPCS: 99213 ==

== ENCOUNTER 2025-04-24 09:33 | Outpatient (AMB) | payer OTHER, SELFPAY ==
[2025-04-24 10:02] VITALS: BP 120/78; PULSE 79; O2SAT 97; BMI 40.5
--- NOTE | 2025-04-24 10:02 | A.OFFVIS_ITS ---
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 02/2025 HST c/w severe vadim NATALIA is 45.3 and OAI is 24.6, lowest O2 desaturation to 75% and nocturnal hypoxemia. Significant hypoxemia with O2 avg is 91%, and below 88% for 49min. Cpap titration is necessary to determine ideal pressures for therapy. He goes to bed at 10pm and gets up 4:30am for work W-Sat. His complaints of his loud snoring and gasping for air. His BMI is elevated, 40.5 and he is trying to lose weight, on zepbound and in the gym 3-5x per week, upper body and lower body work out. He changed his diet by decreasing carbs and increased water intake. He is fatigued chronically as he has anemia, spleen is enlarged on u/s. He denies bruxism, morning headaches. He denies RLS symptoms. [facility] Medical History (Updated 04/24/25 @ 11:02 by Alyx Aguilar PA-C) Severe obstructive sleep apnea Lymphopenia Mild anemia Splenomegaly Dilated bile duct Abnormal US (ultrasound) of abdomen Morbid obesity Elevated bilirubin Routine physical examination Sleep apnea Class 3 obesity Left knee pain Screening for cardiovascular condition Obesity Surgical History (Updated 03/26/25 @ 11:02 by Dorinda Us NP) Hx of foot surgery Family History Father Hypertension Mother Rheumatic arteritis Mental health disorder Social History (Updated 03/26/25 @ 09:52 by Lexi Richardson) Household Members: Family Housing: House Do you presently have visiting nurse or other home services: No 75 years or older and lives alone: No Alcohol intake: current Alcohol intake frequency: holidays/special occasions only Patient Tobacco Use Status: Never used Tobacco e-Cigarette/Vaping Use: Never Used Second Hand Smoke Exposure: No service: No Current occupational status: employed 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 Cognitive needs: No Hearing needs: No Vision needs: Yes (wear glasses) Physical Exam Vital Signs: Last Vital Signs Pulse 79 04/24/25 10:02 BP 120/78 04/24/25 10:02 Pulse Ox 97 04/24/25 10:02 Oxygen Delivery Method Room Air 04/24/25 10:02 BMI result Body Mass Index 40.5 Const General: cooperative, comfortable and no acute distress Nutritional Appearance: obese Orientation/consciousness: patient oriented x3 HEENT Face and sinus: Yes face symmetric Mouth: other ([place] score of 2) Throat: Yes uvula midline Eyes Pupils: Equal, round and reactive pupils present Neck Neck: Yes full ROM Resp Effort & Inspection: normal respiratory effort and able to speak in complete sentences Neuro General: patient oriented x3 and moves all extremities Cranial nerves: Yes Equal, round and reactive pupils present, Yes Normal accommodation reflex present, Yes Nystagmus not present, Yes Normal facial strength present, Yes Midline tongue present, Yes Ability to bilaterally rotate head present and Yes Ability to bilaterally elevate shoulders present Gait exam (Neuro): Normal gait present Motor exam (neuro): 5/5 motor strength present throughout and Normal motor muscle tone present throughout Deep tendon reflexes (DTR's): Right triceps reflex intensity grade: 2+, Left triceps reflex intensity grade: 2+, Rt Biceps (C5, C6): 2+, Left biceps reflex intensity grade: 2+, Right brachioradialis reflex intensity grade: 2+, Left brachioradialis reflex intensity grade: 2+, Right patellar reflex intensity grade: 2+, Left patellar reflex intensity grade: 2+, Right ankle reflex intensity grade: 2+ and Left ankle reflex intensity grade: 2+ Psych Appearance: grossly normal Thought process: Normal thought process present Thought content: Normal thought content present Results Reviewed Results Reviewed: 02/2025 HST c/w NATALIA is 45.3 and OAI is 24.6. Lowest oxygen desaturation is 75%. Significant hypoxemia O2 desaturation averages to 91% and below 88% for over 49min. Cpap titration, needed to determine ideal pressures for therapy and correct the nocturnal hypoxemia. Assessment & Plan Assessment & Plan (1) Excessive daytime sleepiness: Code(s): G47.19 - Other hypersomnia Category: Medical (2) VADIM (obstructive sleep apnea): Code(s): G47.33 - Obstructive sleep apnea (adult) (pediatric) Category: Medical Plan: cpap therapy will begin after completion of titration. (3) Morbid obesity: Code(s): E66.01 - Morbid (severe) obesity due to excess calories Category: Medical (4) Nocturnal hypoxemia: Comment: PSG overnight to determine pressures for cpap Code(s): G47.34 - Idiopathic sleep related nonobstructive alveolar hypoventilation Category: Medical Plan Titration to determine precise pressures and correct nocturnal hypoxemia. Start cpap therapy and f/u for titration with overnight pulse oximetry. Anemia Labs to r/o nutritional deficiencies - U/S of spleen shows enlarged spleen. Obesity on Zepbound 7.5mg subq once a week and managing with diet/ lifestyle. F/U in 3 months. Orders: Orders Methylmalonic Acid Today G47.19 - Other hypersomnia, G47.9 - Sleep disorder, unspecified, R53.83 - Other fatigue Homocysteine Today G47.19 - Other hypersomnia, G47.9 - Sleep disorder, unspecified, R53.83 - Other fatigue Vitamin D 25-OH Total Today G47.19 - Other hypersomnia Hemoglobin A1c Today G47.19 - Other hypersomnia TSH reflex Free T4 Today G47.19 - Other hypersomnia RT PSG in-lab sleep titration Today G47.33 - Obstructive sleep apnea (adult) (pediatric), G47.34 - Idiopathic sleep related nonobstructive alveolar hypoventilation Patient Instructions: Sleep Hygiene provided: set a scheduled bedtime and wake time to help regulate the circadian rhythm and balance the release of pituitary hormones. Sleep in a dark room, temperatures below 68 degrees, and no devices n bed. Limit caffeinated products 6 hours prior to bed, and limit fluids 2-4 hours prior to bed. Gentle night yoga, diffusing essential oils, and playing soft music can be relaxing. CPAP therapy to commence once the over night titration PSG is completed and pressures are determined. Labs complete. Coding Level of Care Code New Pt Level 4 (03954) Diagnoses Excessive daytime sleepiness G47.19 VADIM (obstructive sleep apnea) G47.33 Morbid obesity E66.01 Nocturnal hypoxemia G47.34 Time Spent (min) 30 Comment evaluation of vadim Sleep Questionnaire Difficulty falling asleep: Yes Difficulty staying asleep?: Yes Number of arousals: 2 Snoring: Yes Witnessed apneas: Yes Gasping arousals: Yes Nocturia: No GERD: No Vivid dreams: Yes Acting out dreams: No Abnormal behavior in sleep: No Abnormal movements in sleep: No Morning headaches: No Excessive daytime sleepiness: Yes (sometimes ) Daytime naps: No Restless legs: No Hallucinations: No Sleep paralysis: No Drop attacks: No Sleep Study: Yes CPAP: No
== END 2025-04-24 10:41 | disposition home or self-care (01) ==
LOC: HO.HSMS 09:34
PROVIDERS: PCP Physician Assistant Medical; Visit Provider Physician Assistant Medical
DX: G47.19 Other hypersomnia (principal); G47.33 Obstructive sleep apnea (adult) (pediatric); E66.01 Morbid (severe) obesity due to excess calories; G47.34 Idiopathic sleep related nonobstructive alveolar hypoventilation
CPT/HCPCS: 99204

== ENCOUNTER 2025-04-30 10:02 | Outpatient (REF) | payer OTHER, SELFPAY | END 2025-04-30 10:03 | disposition home or self-care (01) | LOC: HO.WFDLDS 10:02 | PROVIDERS: Visit Provider Physician Assistant Medical | DX: Z13.89 Encounter for screening for other disorder (principal) ==

== ENCOUNTER 2025-04-30 11:02 | Outpatient (REF) | payer OTHER, SELFPAY ==
[2025-04-30 12:44] LABS: Hemoglobin A1C 109.2759 umol/L; Total Hemoglobin (HGBA1C) 4071.1273 umol/L
== END 2025-04-30 11:03 | disposition home or self-care (01) ==
LOC: HO.LAB 11:02
PROVIDERS: Absent Provider Internal Medicine; PCP Physician Assistant Medical; Visit Provider Physician Assistant Medical
DX: D72.810 Lymphocytopenia (principal); G47.19 Other hypersomnia; R53.83 Other fatigue
CPT/HCPCS: 36415; 82306; 83036; 83090; 83921; 84443

== ENCOUNTER 2025-07-09 09:56 | Outpatient (AMB) | payer OTHER, SELFPAY ==
--- NOTE | 2025-07-09 10:01 | A.OFFVIS_ITS ---
Vital Signs 07/09/25 10:03 Height 5 ft 10 in Weight 279 lb 15.793 oz BMI 40.2 BP 142/71 H Blood Pressure Location Lt brachial Position Sitting Pulse 75 Intake Visit Reasons: Unspecified jaundice Intake Note: Adan presents in the office as a new patient for unspecified jaundice. CC: States that when he started zepbound he had some constipation but everything else is good no concerns. 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 Pt reports no abd pain, N,V, D. Routine labs done for physical showed mildly up bilirubin, fractionated bili is mostly indirect. US abd with question of mild CBD dil. MRI abd personally reviewed, priscilla dil mildly prominent. Liver with steatosis. Pt with obesity BMI 40. Started zepbound almost 4-5 months ago. Has lost 50 lbs since then. Startign weight was 330 lbs. Labs also with mild normocytic anemia with increased MMA - pt reports getting B12 supplements. [facility] Medical History Severe obstructive sleep apnea Lymphopenia Mild anemia Splenomegaly Dilated bile duct Abnormal US (ultrasound) of abdomen Morbid obesity Elevated bilirubin Routine physical examination Sleep apnea Class 3 obesity Left knee pain Screening for cardiovascular condition Obesity Surgical History Hx of foot surgery Family History Father Hypertension Mother Rheumatic arteritis Mental health disorder Social History Household Members: Family Housing: House Do you presently have visiting nurse or other home services: No 75 years or older and lives alone: No Alcohol intake: current Alcohol intake frequency: holidays/special occasions only Patient Tobacco Use Status: Never used Tobacco e-Cigarette/Vaping Use: Never Used Second Hand Smoke Exposure: No service: No Current occupational status: employed 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 Cognitive needs: No Hearing needs: No Vision needs: Yes (wear glasses) Review of Systems Const All systems reviewed & are unremarkable except as noted in HPI and below Physical Exam Exam Exam: No apparent distress Nonicteric Abdomen soft, nondistended Alert and oriented x3, normal gait Vital Signs: Last Vital Signs Pulse 75 07/09/25 10:03 BP 142/71 H 07/09/25 10:03 BMI result Body Mass Index 40.2 Assessment & Plan Assessment & Plan (1) Morbid obesity: Code(s): E66.01 - Morbid (severe) obesity due to excess calories Category: Medical (2) Elevated bilirubin: Code(s): R17 - Unspecified jaundice Category: Medical (3) Steatosis, liver: Code(s): K76.0 - Fatty (change of) liver, not elsewhere classified Category: Medical Plan Reveiwed with the pt that likely has underlying Gilbert's disease leading to indirect hyperbili without any evidence of hemolysis. In addition, also appears to have hepatic steatosis based on personal review of images. Likely reason for mild splenomegaly as well. He was counseled on avoiding etOH completely (currently drinks 3-4 drinks in a single sitting), and encouraged weight loss efforts. Add 150 mins of mod intensity exercise. Plan: - Repeat labs in 3 months - US Abd with elasto in 3 months - Of note- pt reports prior imaging was not covered by insurance, advised to call his insurance and verify this. Happy to refer for imaging to a different hospital if [facility] not in network. Follow up 3 months Orders: Orders US abdomen comp w elastography Today E66.01 - Morbid (severe) obesity due to excess calories, R17 - Unspecified jaundice Liver Panel 3 Months R17 - Unspecified jaundice Bilirubin Direct 3 Months R17 - Unspecified jaundice Coding Level of Care Code New Pt Level 4 (55324) Diagnoses Morbid obesity E66.01 Elevated bilirubin R17 Steatosis, liver K76.0
[2025-07-09 10:03] VITALS: BP 142/71; PULSE 75; BMI 40.2
== END 2025-07-09 11:03 | disposition home or self-care (01) ==
PROVIDERS: PCP Physician Assistant Medical; Visit Provider Internal Medicine
DX: E66.01 Morbid (severe) obesity due to excess calories (principal); R17 Unspecified jaundice; K76.0 Fatty (change of) liver, not elsewhere classified
CPT/HCPCS: 99204

== ENCOUNTER 2025-07-09 14:47 | Outpatient (AMB) | payer OTHER, SELFPAY ==
--- NOTE | 2025-07-09 15:01 | A.OFFPC_ITS ---
Vital Signs 07/09/25 15:07 Height 5 ft 10 in Weight 281 lb BMI 40.3 BP 120/70 Blood Pressure Location Rt brachial Position Sitting Respiration 15 Pulse 77 Pulse Source Pulse Oximeter Temp 98.6 F Temp Source Temporal Artery Scan Pulse Oximetry (%) 98 Oxygen Delivery Method Room Air Intake Visit Reasons: Med Check 06/04 reschedule Intake Note: Adan presents in the office today for a medication check. Allergies No Known Allergies Allergy (Verified 07/09/25 15:03) Medication List - Last Reconciled 07/10/25 by GWENDOLYN Martinez CPAP (CPAP Machine/Device) As directed tirzepatide (weight loss) (Zepbound) 10 mg (0.5 mL) subcut QWEEK Tobacco use date assessed: 07/09/25 Dental Screening Dental Screen Date: 07/09/25 Did you have a dental visit in the last 12 months?: Yes Did you have a dental problem in the last 6 months where you did not have access to dental care?: No Was dental information given to patient?: Patient has dentist HPI HPI Comments History of Present Illness Details This is a 35-year-old male with a past medical history of morbid obesity, left knee pain, elevated bilirubin and sleep apnea presenting to review test results. He saw Gastroenterology today for evaluation of elevated bilirubin. Gastroenterology note reviewed. It was thought that he has underlying Gilbert's disease and hepatic steatosis which is likely the reason for his mild splenomegaly. He was counseled to avoid alcohol completely and continue efforts at weight loss. Repeat labs and abdominal ultrasound with elastography in 3 months recommended. He saw Hematology for evaluation of mild cytopenias and splenomegaly. Labs were stable with no evidence of progression of hemolysis. Recommended monitoring CBC annually and referring back if any new issues arose. He has been diagnosed with severe obstructive sleep apnea. He saw sleep Medicine and in-lab titration study was recommended. He is on Zepboudn 7.5 mg weekly for obesity. Current BMI is 40.3. Lost 30 pounds on GLP-1 and 30 lb prior to that with lifestyle modification. ROS: Constitutional: No unexplained weight loss, fever, chills, +fatigue, denies night sweats Eyes: No vision changes, blurry vision, double vision, eye pain, eye redness, eye discharge. Respiratory: No shortness of breath, cough or sputum production. Cardiovascular: No chest pain, chest pressure or chest discomfort. No palpitations or pedal edema. Gastrointestinal: No anorexia, nausea, vomiting or diarrhea. No abdominal pain or blood in stool. Neurologic: No headache, dizziness, syncope, unilateral weakness, ataxia, numbness or tingling in the extremities. Hematologic/Lymphatics: No bleeding or bruising. No painful lymph nodes. Skin: No rash or itching. Physical exam: Constitutional: Alert, in no distress. Eyes: Pupils are equal, round and reactive to light. Extraocular muscles intact. Neck: Supple, Full range of motion. No lymphadenopathy. No palpable thyroid masses. Respiratory: Clear to auscultation. Cardiovascular: S1 S2 regular. No murmurs. Gastrointestinal: Abdomen soft, non-tender, non-distended. Normal bowel sounds. No palpable masses. Skin: No rashes. Extremities: Warm and well perfused. No clubbing, cyanosis or edema. Psychiatric: Normal mood and affect [facility] Medical History Severe obstructive sleep apnea Lymphopenia Mild anemia Splenomegaly Dilated bile duct Abnormal US (ultrasound) of abdomen Morbid obesity Elevated bilirubin Routine physical examination Sleep apnea Class 3 obesity Left knee pain Screening for cardiovascular condition Obesity Surgical History Hx of foot surgery Family History Father Hypertension Mother Rheumatic arteritis Mental health disorder Social History (Updated 07/09/25 @ 15:06 by Jyoti Rosas CMA) Household Members: Family Housing: House Do you presently have visiting nurse or other home services: No 75 years or older and lives alone: No Alcohol intake: current Alcohol intake frequency: holidays/special occasions only Patient Tobacco Use Status: Never used Tobacco e-Cigarette/Vaping Use: Never Used Second Hand Smoke Exposure: No service: No Current occupational status: employed 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 Cognitive needs: No Hearing needs: No Vision needs: Yes (wear glasses) Questionnaire Thrive Questionnaire Date Thrive assessed: 12/08/24 I am a: Patient What is your living situation today?: I have a steady place to live Within the past 12 months, did the food you bought not last and you didn't have the money to get more?: Never true Within the past 12 months, did you worry whether your food would run out before you got money to buy more?: Never true Do you have trouble paying for medicines?: No Do you have trouble getting transportation to medical appointments?: No Do you have trouble paying your heating and electricity bill?: No Do you have trouble taking care of your child, family member or friend?: No Do you have trouble with day-to-day activities such as bathing, preparing meals, shopping, managing finances, etc.?: No Are you currently unemployed and looking for a job?: No Are you interested in more education?: No Please select the resources that you would like help with: None Currently or been in a relationship where the following occur: No concerns reported THRIVE Score: 0 FABIAN-7 AMB Questionnaire FABIAN-7 Date FABIAN - 7 assessed: 12/11/24 Source: Developed by Drs. Tim Garcia, Harper Alvarez, Ray Hernandez and colleagues, with an educational mansi from [employer]. Physical exam (Primary Care) Vital Signs: Last Vital Signs Temp 98.6 F 07/09/25 15:07 Pulse 77 07/09/25 15:07 Resp 15 07/09/25 15:07 BP 120/70 07/09/25 15:07 Pulse Ox 98 07/09/25 15:07 Oxygen Delivery Method Room Air 07/09/25 15:07 BMI result Body Mass Index 40.3 Tobacco/Smoking Status: Tobacco use Status Tobacco use date assessed 07/09/25 07/09/25 15:11 Patient Tobacco Use Status Never used Tobacco 07/09/25 15:06 e-Cigarette/Vaping Use Never Used 07/09/25 15:06 Thrive Assessment: Date of Thrive Assessment Date Thrive assessed 12/08/24 07/09/25 15:03 Currently or been in a relationship where the following occur: No concerns reported Coding Level of Care Code Est Pt Level 4 (30798) Complex EM visit Add On G2211 Diagnoses Morbid obesity E66.01 Elevated bilirubin R17 Splenomegaly R16.1 Severe obstructive sleep apnea G47.33 Assessment & Plan Assessment & Plan (1) Morbid obesity: Code(s): E66.01 - Morbid (severe) obesity due to excess calories Category: Medical Plan: Continue lifestyle modifications. He is exercising more and playing sports. He has following a healthy diet, and he says he is going to eliminate alcohol following his meeting with a avionics mechanic today. Denies side effects on GLP 1. Increase tirzepatide to 10 mg weekly. (2) Elevated bilirubin: Code(s): R17 - Unspecified jaundice Category: Medical Plan: Though to be due to Gilbert's syndrome. (3) Splenomegaly: Code(s): R16.1 - Splenomegaly, not elsewhere classified Category: Medical Plan: Attributed to hepatic steatosis. Continue efforts at weight loss. Avoid processed foods. Follow low-cholesterol diet. He is going to eliminate alcohol. (4) Severe obstructive sleep apnea: Code(s): G47.33 - Obstructive sleep apnea (adult) (pediatric) Category: Medical Plan: Continue efforts at weight loss. Avoid alcohol. Avoid sleeping supine. I provided him with the contact number for sleep medicine so he can call to arrange the study to start treatment as soon as possible. Plan He is due for a physical exam in November. He will schedule this. Medications: New tirzepatide (weight loss) (Zepbound) 10 mg (0.5 mL) subcut QWEEK 2 mL 3RF Discontinued tirzepatide (weight loss) (Zepbound) Discontinued Reason: Doctor's Order 7.5 mg (0.5 mL) subcut QWEEK 2 mL 0RF
[2025-07-09 15:07] VITALS: BP 120/70; PULSE 77; RESP 15; TEMP 37; O2SAT 98; BMI 40.3
== END 2025-07-09 15:37 | disposition home or self-care (01) ==
LOC: HO.HMCFM 14:48
PROVIDERS: PCP Physician Assistant Medical; Visit Provider Physician Assistant Medical
DX: R17 Unspecified jaundice (principal); E66.01 Morbid (severe) obesity due to excess calories; Z68.41 Body mass index [BMI] 40.0-44.9, adult; R16.1 Splenomegaly, not elsewhere classified; G47.33 Obstructive sleep apnea (adult) (pediatric)

== ENCOUNTER → 2025-07-19 20:30 | Outpatient (REF) | payer OTHER, SELFPAY | LOC: HO.SL 20:30 | PROVIDERS: PCP Physician Assistant Medical; Visit Provider Physician Assistant Medical | DX: G47.33 Obstructive sleep apnea (adult) (pediatric) (principal); G47.34 Idiopathic sleep related nonobstructive alveolar hypoventilation | CPT/HCPCS: 95811 ==

== ENCOUNTER → 2025-07-19 21:27 | Outpatient (BNV) | payer OTHER, SELFPAY | PROVIDERS: PCP Physician Assistant Medical; Visit Provider Psychiatry & Neurology Neurology | DX: G47.33 Obstructive sleep apnea (adult) (pediatric) (principal) | CPT/HCPCS: 95811 ==

== ENCOUNTER 2025-08-20 11:22 | Outpatient (AMB) | payer OTHER, SELFPAY ==
--- NOTE | 2025-08-20 11:29 | MHC.OFFVIS ---
Vital Signs 08/20/25 11:30 Height 5 ft 10 in Weight 278 lb 6 oz BMI 39.9 BP 136/90 H Blood Pressure Location Lt brachial Position Sitting Pulse 77 Pulse Source Pulse Oximeter Pulse Oximetry (%) 99 Oxygen Delivery Method Room Air Intake Visit Reasons: 3month follow up Intake Note: Patient presents follow up VADIM. Labs in chart. Titration in chart(Trailed at 4-8cm Stabilized at 8cm. CPAP 8cm). [facility] Accompanied by: Self / Same As Patient Allergies No Known Allergies Allergy (Verified 08/20/25 11:33) HPI Comments Details: 35 year old male new patient visit, referred to us by his PCP, Sushma Jackson. 02/2025 HST c/w severe vadim NATALIA is 45.3 and OAI is 24.6, lowest O2 desaturation to 75% and nocturnal hypoxemia. Significant hypoxemia with O2 avg is 91%, and below 88% for 49min. Titration study reviewed with pt breathing and oxygen stabilized at 8cmH20 and f/u for compliance He goes to bed at 10pm and gets up 4:30am for work W-Sat. His complaints of his loud snoring and gasping for air. His BMI is elevated, 40.5 and he is trying to lose weight, on zepbound and in the gym 3-5x per week, upper body and lower body work out. He changed his diet by decreasing carbs and increased water intake. He is fatigued chronically as he has anemia, spleen is enlarged on u/s will monitor. BP is elevated today will refer to pcp. Mood,memory and diet are stable. He denies bruxism, morning headaches. He denies RLS symptoms. ON LICENSE OF [facility] Medical History Severe obstructive sleep apnea Lymphopenia Mild anemia Splenomegaly Dilated bile duct Abnormal US (ultrasound) of abdomen Morbid obesity Elevated bilirubin Routine physical examination Sleep apnea Class 3 obesity Left knee pain Screening for cardiovascular condition Obesity Surgical History Hx of foot surgery Family History Father Hypertension Mother Rheumatic arteritis Mental health disorder Social History Household Members: Family Housing: House Do you presently have visiting nurse or other home services: No 75 years or older and lives alone: No Alcohol intake: current Alcohol intake frequency: holidays/special occasions only Patient Tobacco Use Status: Never used Tobacco e-Cigarette/Vaping Use: Never Used Second Hand Smoke Exposure: No service: No Current occupational status: employed 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 Cognitive needs: No Hearing needs: No Vision needs: Yes (wear glasses) Physical Exam Vital Signs: Last Vital Signs Pulse 77 08/20/25 11:30 BP 136/90 H 08/20/25 11:30 Pulse Ox 99 08/20/25 11:30 Oxygen Delivery Method Room Air 08/20/25 11:30 BMI result Body Mass Index 39.9 Const General: cooperative, comfortable and no acute distress Nutritional Appearance: obese Orientation/consciousness: patient oriented x3 HEENT Face and sinus: Yes face symmetric Mouth: other ([place] score of 2) Throat: Yes uvula midline Eyes Pupils: Equal, round and reactive pupils present Neck Neck: Yes full ROM Resp Effort & Inspection: normal respiratory effort and able to speak in complete sentences Neuro General: patient oriented x3 and moves all extremities Cranial nerves: Yes Equal, round and reactive pupils present, Yes Normal accommodation reflex present, Yes Nystagmus not present, Yes Normal facial strength present, Yes Midline tongue present, Yes Ability to bilaterally rotate head present and Yes Ability to bilaterally elevate shoulders present Cognition (Neuro): normal cognition Gait exam (Neuro): Normal gait present Motor exam (neuro): 5/5 motor strength present throughout and Normal motor muscle tone present throughout Psych Appearance: grossly normal Mental Status: mental status grossly normal Attitude: cooperative Thought process: Normal thought process present Thought content: Normal thought content present Results Reviewed Results Reviewed: Titration study reviewed breathing and oxygen stabilized with cpap 8cmH20. Assessment & Plan Assessment & Plan (1) VADIM on CPAP: Code(s): G47.33 - Obstructive sleep apnea (adult) (pediatric); Z99.89 - Dependence on other enabling machines and devices Category: Medical (2) Excessive daytime sleepiness: Code(s): G47.19 - Other hypersomnia Category: Medical (3) Low vitamin D level: Code(s): R79.89 - Other specified abnormal findings of blood chemistry Category: Medical (4) VADIM (obstructive sleep apnea): Code(s): G47.33 - Obstructive sleep apnea (adult) (pediatric) Category: Medical Plan: cpap therapy will begin after completion of titration. (5) Morbid obesity: Code(s): E66.01 - Morbid (severe) obesity due to excess calories Category: Medical (6) Nocturnal hypoxemia: Comment: PSG overnight to determine pressures for cpap Code(s): G47.34 - Idiopathic sleep related nonobstructive alveolar hypoventilation Category: Medical Plan Titration study reviewed with pt. his breathing and oxygen stabilized at 8cmH20 will start therapy and f/u for compliance. Labs reviewed with pt start daily vit D 1000units otc, will repeat labs at next visit. Anemia Labs to r/o nutritional deficiencies at next visit. continue B12, as homocysteine is elevated. Obesity on Zepbound 7.5mg subq once a week and managing with diet/ lifestyle. pt. is doing well with weight loss. Monitor BP, as it is the number one modifiable risk factor in preventing cv events. F/U in 3 months. Medications: New cholecalciferol (vitamin D3) take one capsule daily 25 mcg PO DAILY 90 caps 0RF low vitamin d 3 months MDD 25mcg R79.89 - Other specified abnormal findings of blood chemistry Patient Instructions: Please complete the following fasting labs to rule out deficiencies. CBC/CMP/ B12/ Vit D/ TSH/ Homocysteine and MMA/ Ferritin. reviewed Coding Level of Care Code Est Pt Level 4 (53126) Diagnoses VADIM on CPAP G47.33; Z99.89 Excessive daytime sleepiness G47.19 Low vitamin D level R79.89 VADIM (obstructive sleep apnea) G47.33 Morbid obesity E66.01 Nocturnal hypoxemia G47.34
[2025-08-20 11:30] VITALS: BP 136/90; PULSE 77; O2SAT 99; BMI 39.9
== END 2025-08-20 11:58 | disposition home or self-care (01) ==
LOC: HO.HSMS 11:23
PROVIDERS: PCP Physician Assistant Medical; Visit Provider Physician Assistant Medical
DX: G47.33 Obstructive sleep apnea (adult) (pediatric) (principal); Z99.89 Dependence on other enabling machines and devices; G47.19 Other hypersomnia; R79.89 Other specified abnormal findings of blood chemistry; E66.01 Morbid (severe) obesity due to excess calories; G47.34 Idiopathic sleep related nonobstructive alveolar hypoventilation
CPT/HCPCS: 99214

== ENCOUNTER 2025-09-11 08:55 | Outpatient (REF) | payer OTHER, SELFPAY ==
--- NOTE | ~2025-09-11 | US_ITS ---
EXAMINATION: US COMPLETE ABDOMEN WITH LIVER ELASTOGRAPHY CLINICAL INFORMATION: Obesity COMPARISON: Previous abdominal ultrasound Limited and abdominal MRI January 2025 TECHNIQUE: Real-time imaging of the abdominal viscera. Noninvasive ultrasound liver fibrosis assessment is performed using Mine ElastPQ point quantification shear wave elastography (pSWE) with a C5-2 MHz transducer. Multiple elastography samples are obtained. FINDINGS: PANCREAS: Not well-visualized due to bowel gas ABDOMINAL AORTA: No aortic aneurysm is seen. INFERIOR VENA CAVA: Visualized portions are normal. LIVER: The liver demonstrates normal size, contour and echogenicity. No focal lesion or intrahepatic biliary duct dilatation. The right lobe measures 16.4 cm in length. The left lobe measures 9 cm in length. Portal flow is normal/hepatopedal Shear wave liver elastography median stiffness is 1.42 m/s (reference: normal median stiffness is 1.3 m/s or less). Limited due to sampling error and decreased confidence interval. IQR/median stiffness to assess sampling precision is 0.5 (reference: good quality data set is IQR/median stiffness of 0.15 or less). GALLBLADDER: The gallbladder is physiologically distended without evidence of stones, sludge, polyps, wall thickening or pericholecystic fluid. COMMON BILE DUCT: Normal in caliber measuring 0.4 cm in diameter. RIGHT KIDNEY: No hydronephrosis. No renal calculi or focal parenchymal lesions. The kidney measures 11 cm in maximum dimension. LEFT KIDNEY: No hydronephrosis. No renal calculi or focal parenchymal lesions. The kidney measures 14 cm in maximum dimension. SPLEEN: Unremarkable. The spleen measures 12.5 cm in maximum dimension. FREE FLUID: None seen. US/US abdomen comp w elastography IMPRESSION: 1. Impression: Normal-appearing liver. Limited visualization of the pancreas. 2. Liver elastography: Although measurements appear to rule out compensated advanced chronic liver disease, there is statistical variability of the sampling which decreases accuracy. REFERENCE: Society of Radiologists in Ultrasound Liver Stiffness Thresholds (2019): LIVER STIFFNESS THRESHOLDS: *Liver Stiffness equal or less than 1.3 m/s: High probability of being normal. *Liver Stiffness less than 1.7 m/s: In the absence of other known clinical signs, rules out compensated advanced chronic liver disease. *Liver Stiffness 1.7-2.1 m/s: Suggestive of compensated advanced chronic liver disease but need further test for confirmation. *Liver Stiffness over 2.1 m/s: Rules in compensated advanced chronic liver disease. *Liver Stiffness over 2.4 m/s: Suggestive of clinically significant portal hypertension. QUALITY OF DATA SET: *IQR/Median value equal or less than 0.15 implies a quality data set. *IQR/Median value over 0.15 implies a poor quality data set. SIGNIFICANT CHANGE FROM PRIOR EXAM: Significant change if liver stiffness measurement is 10% or greater from prior exam. OTHER CONSIDERATIONS: The stage of liver fibrosis may be overestimated in the setting of acute hepatitis, liver inflammation, elevated liver function tests, hepatic vascular congestion, obstructive cholestasis, non-fasting state, and infiltrative diseases such as amyloidosis and lymphoma. In some patients with NAFLD, the liver stiffness thresholds for compensated advanced chronic liver disease may be lower. In causes other than viral hepatitis and NAFLD, liver stiffness thresholds are not well established. Electronically signed by: Andria Samuel MD 09/11/2025 09:40 AM [facility]
== END 2025-09-11 08:56 | disposition home or self-care (01) ==
LOC: HO.US 08:55
PROVIDERS: PCP Physician Assistant Medical; Visit Provider Internal Medicine
DX: E66.01 Morbid (severe) obesity due to excess calories (principal); R17 Unspecified jaundice
CPT/HCPCS: 76700; 76981

== ENCOUNTER → 2025-09-11 08:59 | Outpatient (BNV) | payer OTHER, SELFPAY | PROVIDERS: PCP Physician Assistant Medical; Visit Provider Radiology Diagnostic Radiology | DX: E66.01 Morbid (severe) obesity due to excess calories (principal); Z68.41 Body mass index [BMI] 40.0-44.9, adult | CPT/HCPCS: 76700 ==

== ENCOUNTER 2025-10-08 09:44 | Outpatient (REF) | payer OTHER, SELFPAY ==
[2025-10-08 12:03] LABS: Alanine Aminotransferase 22 U/L (0-40); Albumin Level 4.4 g/dL (3.5-5.0); Alkaline Phosphatase 46 U/L (39-117); Aspartate Amino Transferase 25 U/L (5-37); Total Protein 7.2 g/dL (6.5-8.0)
== END 2025-10-08 09:45 | disposition home or self-care (01) ==
LOC: HO.LAB 09:44
PROVIDERS: PCP Physician Assistant Medical; Visit Provider Internal Medicine
DX: R17 Unspecified jaundice (principal); E66.01 Morbid (severe) obesity due to excess calories; Z68.38 Body mass index [BMI] 38.0-38.9, adult
CPT/HCPCS: 36415; 80076

== ENCOUNTER 2025-10-08 09:44 | Outpatient (AMB) | payer OTHER, SELFPAY ==
--- NOTE | 2025-10-08 09:47 | A.OFFVIS_ITS ---
Vital Signs 10/08/25 09:51 Height 5 ft 10 in Weight 271 lb 2.697 oz BMI 38.9 BP 118/72 Blood Pressure Location Lt brachial Position Sitting Pulse 75 Intake Visit Reasons: Liver follow up Intake Note: Adan presents in the office as a follow up for his liver. CC: State that he is not having any concerns at this time. Drying Room Operator Required: No Allergies No Known Allergies Allergy (Verified 10/08/25 09:52) HPI Comments Details: 35 y.o M with PMH of obesity, VADIM who is here for elevated bilirubin. Pt reports no abd pain, N,V, D. Routine labs done for physical showed mildly up bilirubin, fractionated bili is mostly indirect. US abd with question of mild CBD dil. MRI abd personally reviewed, priscilla dil mildly prominent. Liver with steatosis. Pt with obesity BMI 40. Started zepbound almost 4-5 months ago. Has lost 50 lbs since then. Startign weight was 330 lbs. Labs also with mild normocytic anemia with increased MMA - pt reports getting B12 supplements. 10/08/25: He is presenting for follow-up of abnormal liver function tests. However he did not get blood work done today. His last blood work was approximately five months ago in April. Elastography with normal liver appearance. Pt was advised that elasto numbers not accurate due to sampling error. Overall hx of mildly elevated bilirubin, remains consistent with Gilbert's syndrome. Regarding lifestyle, the patient reports occasional alcohol use and was previously counseled to limit intake to no more than two or three drinks in a single sitting. For weight management, he is on Zepbound 10 mg and has lost approximately 44 pounds over the last year, with his weight decreasing from 315 lbs to 271 lbs. --- Pt was informed and consented to the use of ambient scribe for this encounter. --- [facility] Medical History Severe obstructive sleep apnea Lymphopenia Mild anemia Splenomegaly Dilated bile duct Abnormal US (ultrasound) of abdomen Morbid obesity Elevated bilirubin Routine physical examination Sleep apnea Class 3 obesity Left knee pain Screening for cardiovascular condition Obesity Surgical History Hx of foot surgery Family History Father Hypertension Mother Rheumatic arteritis Mental health disorder Social History Household Members: Family Housing: House Do you presently have visiting nurse or other home services: No 75 years or older and lives alone: No Alcohol intake: current Alcohol intake frequency: holidays/special occasions only Patient Tobacco Use Status: Never used Tobacco e-Cigarette/Vaping Use: Never Used Second Hand Smoke Exposure: No service: No Current occupational status: employed 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 - Constitutional: Denies fevers or chills. - Gastrointestinal: Denies abdominal pain, nausea, and vomiting. - Denies abdominal distension. - Integumentary: Reports some pruritus, which he attributes to dry skin. Physical Exam Vital Signs: Last Vital Signs Pulse 75 10/08/25 09:51 BP 118/72 10/08/25 09:51 BMI result Body Mass Index 38.9 No apparent distress Nonicteric Abdomen soft, nondistended Alert and oriented x3, normal gait Assessment & Plan Assessment & Plan (1) Elevated bilirubin: Code(s): R17 - Unspecified jaundice Category: Medical (2) Morbid obesity: Code(s): E66.01 - Morbid (severe) obesity due to excess calories Category: Medical Plan Assessment and Plan 1. Gilbert's syndrome The patient is seen for follow-up of elevated indirect hyperbilirubinemia. Plan: - Repeat labs today - If labs are stable or improved, no further follow-up in this clinic is required; otherwise, he will be scheduled for a return visit. - Patient was educated on Gilbert's syndrome, including the potential for bilirubin to fluctuate with stress, dehydration, or illness. - He was also advised to limit etOH drinks to 2-3 per single sitting. Coding Level of Care Code Est Pt Level 3 (28462) Diagnoses Elevated bilirubin R17 Morbid obesity E66.01
[2025-10-08 09:51] VITALS: BP 118/72; PULSE 75; BMI 38.9
== END 2025-10-08 10:33 | disposition home or self-care (01) ==
LOC: HO.HGI 09:45
PROVIDERS: PCP Physician Assistant Medical; Visit Provider Internal Medicine
DX: R17 Unspecified jaundice (principal); E66.01 Morbid (severe) obesity due to excess calories
CPT/HCPCS: 99213